=== PATIENT | female | born 1975 | race Caucasian/White ===

== ENCOUNTER 2021-01-02 07:36 | Emergency (ER) | payer BC, OTHER ==
[~2021-01-02] VITALS: Ht 170.2 cm; Wt 75.2 kg
--- NOTE | 2021-01-02 07:55 | NUR ---
patient arrives after a fall last night, tripped on sidewalk. pulled hamstring doing this, and left leg posterior is in pain from butt to knee.
[2021-01-02] MEDS ORDERED: DIAZEPAM 5 MG TABLET PO ONE (08:00)
[2021-01-02] MEDS ORDERED: KETOROLAC 30 MG/1 ML IM ONE (08:00)
[2021-01-02] MEDS ORDERED: KETOROLAC 30 MG/1 ML ONE (08:02)
[2021-01-02] MEDS ORDERED: DIAZEPAM 5 MG TABLET ONE (08:02)
[2021-01-02 08:42] VITALS: BP 116/78
== END 2021-01-02 08:49 | disposition home or self-care (01) ==
LOC: ED 08:20
DX: S76.812A Strain of other specified muscles, fascia and tendons at thigh level, left thigh, initial encounter (principal); F17.210 Nicotine dependence, cigarettes, uncomplicated; W01.0XXA Fall on same level from slipping, tripping and stumbling without subsequent striking against object, initial encounter; Y93.89 Activity, other specified; Y92.89 Other specified places as the place of occurrence of the external cause; Y99.8 Other external cause status
CPT/HCPCS: 73552; 96372; 99283; 99406; J1885